=== PATIENT | female | born 1960 | race African-American/Black ===

== ENCOUNTER 2018-09-16 09:29 | Inpatient (IN) | payer MEDICARE, MEDICAID ==
[~2018-09-16] VITALS: Ht 149.9 cm; Wt 78.0 kg
[~2018-09-16 09:29] MED LIST: CEFOXITIN SODIUM 2 G in DEXT 5% WATER 100 ML IV ONE
[2018-09-16] MEDS ORDERED: LACTATED RINGERS 1,000 ML IV SCH (10:15)
[2018-09-16] MEDS ORDERED: TRAZ-213 PO (11:00)
[2018-09-16] MEDS ORDERED: LURA120T PO (11:00)
[2018-09-16] MEDS ORDERED: FLUO20CA33 PO (11:00)
[2018-09-16] MEDS ORDERED: TRAM50TA3 PO (11:00)
[2018-09-16] MEDS ORDERED: SKIN ADHESIVE 0.7 GM EA TOP ONE (11:18)
[2018-09-16] MEDS ORDERED: INDOCYANINE GREEN 25 MG VIAL IV ONE (11:18)
[2018-09-16] MEDS ORDERED: LIDOCAINE HCL 1% 20ML VIAL (Pyxis) INJ ONE (11:18)
[2018-09-16] MEDS ORDERED: BACITRACIN 50,000 UNITS/VIAL ONE (11:19)
[2018-09-16] MEDS ORDERED: NORMAL SALINE 0.9% 10 ML SYR ONE (11:19)
[2018-09-16] MEDS ORDERED: BUPIVACAINE HCL/PF 0.5% (5MG/ML) 10ML ONE (11:19)
[2018-09-16] MEDS ORDERED: FENTANYL CITRATE/PF 50MCG/ML 2ML VIAL ONE (11:42)
[2018-09-16] MEDS ORDERED: SUCCINYLCHOLINE CHLORIDE 200MG/10ML IV ONE (11:42)
[2018-09-16] MEDS ORDERED: MIDAZOLAM HCL 2 MG/2 ML VIAL ONE (11:42)
[2018-09-16] MEDS ORDERED: ROCURONIUM BROMIDE 10MG/ML VIAL 5ML IV ONE ×2 (11:42→13:25)
[2018-09-16] MEDS ORDERED: PROPOFOL 200MG/20ML VIAL IV ONE (11:45)
[2018-09-16] MEDS ORDERED: ESMOLOL HCL 10MG/ML 10ML VIAL IV ONE (11:59)
[2018-09-16] MEDS ORDERED: SODIUM CHLORIDE 0.9% 10ML VIAL ONE ×2 (12:10→12:28)
[2018-09-16] MEDS ORDERED: ONDANSETRON HCL 4MG/2ML INJ ONE (12:20)
[2018-09-16] MEDS ORDERED: DEXAMETHASONE 4MG/ML 1ML VIAL ONE (12:25)
[2018-09-16] MEDS ORDERED: HYDRALAZINE 20MG/ML VIAL ONE (12:28)
[2018-09-16] MEDS ORDERED: GLYCOPYRROLATE 0.2 MG/ML 2ML VIAL ONE (13:30)
[2018-09-16] MEDS ORDERED: KETOROLAC 30MG/ML VIAL IV SCH (14:15)
[2018-09-16] MEDS ORDERED: ONDANSETRON HCL 4MG/2ML INJ IV PRN (14:15)
[2018-09-16] MEDS ORDERED: HYDROMORPHONE HCL/PF 2MG/ML CPJ IV PRN (14:15)
[2018-09-16] MEDS ORDERED: LABETALOL HCL 5MG/ML VIAL 20ML IV ONE (14:16)
[2018-09-16] MEDS: HYDROMORPHONE HCL/PF 2MG/ML CPJ IV PRN ×3 (14:38→15:58)
[2018-09-16] MEDS: LABETALOL 5MG/ML SYR 20 MG/4 ML SYRINGE IV NR ×2 (15:23→15:42)
[2018-09-16] MEDS ORDERED: LABETALOL HCL 20MG/4ML CARPUJECT IV ONE (15:26)
[2018-09-16] MEDS ORDERED: LORAZEPAM 2MG/ML CPJ IV PRN (16:45)
[2018-09-16 17:56] LABS: HEMATOCRIT 36.6 % (36.0-48.0); HEMOGLOBIN 12.1 g/dL (12.0-16.0)
[2018-09-16] MEDS ORDERED: SODIUM CHLORIDE 0.45% 1,000 ML IV SCH (18:15)
[2018-09-16] MEDS ORDERED: DILTIAZEM HCL 5MG/ML 5ML VIAL IV ONE (19:00)
[2018-09-16 22:50] VITALS: BP 123/64
[2018-09-17] VITALS: BP 119/66
[2018-09-17] MEDS: SODIUM CHLORIDE 0.45% 1,000 ML IV SCH ×3 (00:23→19:25)
[2018-09-17] MEDS: DILTIAZEM HCL 30MG TABLET PO SCH ×4 (00:24→21:24)
[2018-09-17] MEDS: KETOROLAC 30MG/ML VIAL IV SCH ×5 (00:39→23:53)
[2018-09-17 06:17] VITALS: BP 121/59
[2018-09-17 08:00] VITALS: BP 130/68
[2018-09-17 12:00] VITALS: BP 121/68
[2018-09-17] MEDS ORDERED: DILT30TA38 PO (13:15)
[2018-09-17 16:00] VITALS: BP 116/65
[2018-09-17 20:00] VITALS: BP 125/63
[2018-09-17] MEDS: LORAZEPAM 0.5MG TABLET PO PRN (21:23)
[2018-09-18] VITALS: BP 125/77
[2018-09-18 04:00] VITALS: BP 148/92
[2018-09-18] MEDS: KETOROLAC 30MG/ML VIAL IV SCH (06:11)
[2018-09-18] MEDS: DILTIAZEM HCL 30MG TABLET PO SCH (06:12)
[2018-09-18] MEDS: SODIUM CHLORIDE 0.45% 1,000 ML IV SCH (06:12)
[2018-09-18 08:09] VITALS: BP 141/75
[2018-09-18] MEDS: LORAZEPAM 0.5MG TABLET PO PRN (09:58)
[2018-09-18 11:24] VITALS: BP 141/75
== END 2018-09-18 11:55 | disposition home or self-care (01) | DRG 418 ==
LOC: OR 09:29 → 5WST 09:30
PROVIDERS: ADMIT Internal Medicine; ATTEND Internal Medicine
PROC: 0FT44ZZ Resection of Gallbladder, Percutaneous Endoscopic Approach (ICD-10-PCS; principal; 2018-09-16)
PROC: 0WQF4ZZ Repair Abdominal Wall, Percutaneous Endoscopic Approach (ICD-10-PCS; 2018-09-16)
PROC: 8E0W4CZ Robotic Assisted Procedure of Trunk Region, Percutaneous Endoscopic Approach (ICD-10-PCS; 2018-09-16)
DX: K80.10 Calculus of gallbladder with chronic cholecystitis without obstruction (principal); I47.1 Supraventricular tachycardia; K42.0 Umbilical hernia with obstruction, without gangrene; I48.92 Unspecified atrial flutter; J44.9 Chronic obstructive pulmonary disease, unspecified; F17.200 Nicotine dependence, unspecified, uncomplicated; E66.9 Obesity, unspecified; I10 Essential (primary) hypertension; F31.9 Bipolar disorder, unspecified; Z71.3 Dietary counseling and surveillance; Z79.899 Other long term (current) drug therapy; Z98.891 History of uterine scar from previous surgery; Z68.34 Body mass index [BMI] 34.0-34.9, adult
CPT/HCPCS: 36415; 85014; 85018; 88304; 93005; 93306; J0330; J0360; J0694; J1100; J1170; J1885; J2060; J2250; J2405; J2704; J3010; J3490; J7060; Q9957